=== PATIENT | male | born 1980 | race Asian ===

== ENCOUNTER 2023-04-07 11:20 | Emergency (ER) | payer BC ==
[~2023-04-07] VITALS: Ht 175.3 cm; Wt 95.5 kg
[2023-04-07 11:45] VITALS: TEMP 98.7
[2023-04-07] MEDS ORDERED: METF-1211 PO (11:46)
[2023-04-07] MEDS ORDERED: IBUPROFEN 600 MG TABLET PO ONE (12:15)
[2023-04-07 13:11] LABS: GLUCOMETER DEV NAME(LOC) ERT.5
[2023-04-07] MEDS ORDERED: IBUP-1554 PO (14:01)
[2023-04-07] MEDS ORDERED: METH-812 PO (14:01)
[2023-04-07 14:24] VITALS: BP 142/88; PULSE 78; RESP 18
== END 2023-04-07 14:30 | disposition home or self-care (01) ==
LOC: EMS 11:25
DX: S39.012A Strain of muscle, fascia and tendon of lower back, initial encounter (principal); S13.4XXA Sprain of ligaments of cervical spine, initial encounter; E11.65 Type 2 diabetes mellitus with hyperglycemia; V89.2XXA Person injured in unspecified motor-vehicle accident, traffic, initial encounter; Y93.89 Activity, other specified; Y92.89 Other specified places as the place of occurrence of the external cause; Y99.8 Other external cause status
CPT/HCPCS: 72040; 72070; 72100; 82962; 99284